=== PATIENT | male | born 1970 | race Caucasian/White ===

== ENCOUNTER → 2020-05-01 | Outpatient (CLI) | payer OTHER ==
[2020-05-01 11:23] LABS: Basophils # (A) 0.1 k/uL (0-0.2); Basophils % (A) 1 %; Eosinophils # (A) 0.3 k/uL (0-0.7); Eosinophils % (A) 3 %; HCT 50.8 % (39.0-53.0); HGB 16.7 gm/dL (13.0-17.5); Lymphocytes # (A) 2.4 k/uL (1.0-4.8); Lymphocytes % (A) 22 %; MCH 29.1 pg (25.0-35.0); MCV 88.3 fL (80.0-100.0); Mean Platelet Volume 7.4; Monocytes # (A) 0.6 k/uL (0-1.0); Monocytes % (A) 5 %; Neutrophils # (A) 7.2 k/uL (1.3-7.7); Neutrophils % (A) 67 %; Platelet Count 204 k/uL (150-450); RBC 5.75 m/uL (4.30-5.90); RDW 13.6 % (11.5-15.5); WBC 10.8 k/uL (3.8-10.6)
[2020-05-01 11:31] LABS: Appearance,Urine Clear (Clear); Bilirubin,Urine Negative (Negative); Blood,Urine Negative (Negative); Color,Urine Yellow; Glucose,Urine (UA) Negative (Negative); Ketones,Urine Negative (Negative); Leukocyte Esterase,Urine Negative (Negative); Nitrite,Urine Negative (Negative); PH, Urine 5.5 (5.0-8.0); Protein,Urine Trace (Negative)
[2020-05-01 11:42] LABS: African American GFR (CKD) >90 (>60 ml/min/1.73 sqM); Anion Gap 5 mmol/L; Blood Urea Nitrogen 12 mg/dL (9-20); Calcium 9.3 mg/dL (8.4-10.2); Carbon Dioxide 29 mmol/L (22-30); Chloride 107 mmol/L (98-107); Glucose 112 mg/dL (74-99); Non-African American GFR(CKD) 79 (>60 ml/min/1.73 sqM); Sodium 141 mmol/L (137-145)
--- NOTE | 2020-05-01 15:38 | XR ---
EXAMINATION TYPE: XR chest 2V DATE OF EXAM: 05/01/2020 COMPARISON: NONE HISTORY: Z01.818, R05 TECHNIQUE: Frontal and lateral views of the chest are obtained. FINDINGS: There is no pleural effusion or pneumothorax seen. The cardiac silhouette size is within normal limits. Prominence of the lung volumes with flattening the hemidiaphragms noted. Bandlike are as of increased attenuation present at the lung bases. The osseous structures are intact. IMPRESSION: Basilar atelectasis or scarring.
== END | disposition home or self-care (01) ==
LOC: LABPAT 10:29
PROVIDERS: ATTEND Urology
DX: Z01.818 Encounter for other preprocedural examination (principal); C61 Malignant neoplasm of prostate; R35.0 Frequency of micturition; R53.83 Other fatigue; R05 Cough
CPT/HCPCS: 36415; 71046; 80048; 81003; 85025; 87086; 93005

== ENCOUNTER 2020-05-10 10:15 | Day surgery (SDC) | payer OTHER ==
[2020-05-03 15:46] VITALS: BMI 27.7
--- NOTE | 2020-05-09 22:30 | P.HPIHPCON ---
History of Present Illness H&P Date: 05/09/20 Chief Complaint: Prostate Cancer Mr Marquez is a 49 yo male with hx of shannan 7 (3+4) prostate cancer. We discussed with him the options including surgery and radiation therapy. We discussed the risk and benefits with him of each approach. I discussed with surgery the risk of urinary incontinence and erectile dysfunction, I also discussed with him risk of injury to nearby organs including bowels and rectum and blood vessels. I discussed with him given his previous abdominal surgeries he is at an increased risk of complication. I also discussed the risk from anesthesia with him. Which included but not limited to blood clots, heart attack, stroke and even . He understood all the risk and agreed to proceed with a robotic-assisted radical prostatectomy and pelvic lymph node dissection Consent for Procedure: I have explained the operation/procedure to the patient, including the risks, benefits, side effects, alternative therapies (including not receiving the proposed treatment or service), the likelihood of the patient achieving his/her goals, and potential recuperation problems for the procedure/sedation/analgesia, as well as any blood products, if indicated. I also explained to the patient the risks, benefits and side effects of the alternatives, as well as the risks related to not receiving the proposed procedure, care, treatment, or services. - Constitutional Constitutional: Denies chills, Denies fever - Cardiovascular Cardiovascular: Denies chest pain, Denies shortness of breath - Respiratory Respiratory: Denies cough, Denies 7 - Genitourinary (Female) Genitourinary: Denies dysuria, Denies hematuria Past Medical History Past Medical History: Cancer Additional Past Medical History / Comment(s): Prostate cancer. "BP being monitored a little high sometimes, no medication needed, made some diet changes that have helped." History of Any Multi-Drug Resistant Organisms: None Reported Past Surgical History: Appendectomy Additional Past Surgical History / Comment(s): Vasectomy. Past Anesthesia/Blood Transfusion Reactions: No Reported Reaction Past Psychological History: No Psychological Hx Reported Smoking Status: Current every day smoker Past Alcohol Use History: Occasional Additional Past Alcohol Use History / Comment(s): Has been smoking on and off for 30 yrs, 1 PPD. Past Drug Use History: None Reported - Past Family History Father Family Medical History: Cancer Additional Family Medical History / Comment(s): Leukemia. Medications and Allergies Home Medications Medication Instructions Recorded Confirmed Type Aspirin [Adult Low Dose Aspirin EC] 81 mg PO DAILY 05/03/20 05/03/20 History Multivit-Min/Folic/Vit K/Lycop 1 each PO DAILY 05/03/20 05/03/20 History [Men's Multivitamin Tablet] Viagra (Unknown Dose) 1 tab PO DIRECTED PRN 05/03/20 05/03/20 History Allergies Allergy/AdvReac Type Severity Reaction Status Date / Time Penicillins Allergy Severe Anaphylaxis Verified 05/03/20 15:47 Surgical - Exam - General well developed, well nourished, no distress, no pain - Eyes PERRL, normal ocular movement - Respiratory normal expansion, normal respiratory effort - Psychiatric oriented to time, oriented to person, oriented to place Assessment and Plan Assessment: 49 yo male with hx of shannan 7 (3+4) prostate Cancer -OR for robotic prostatectomy and PLND
[~2020-05-10 10:15] MED LIST: CLINDAMYCIN 600 MG in DEXTROSE 5% IN WATER 50 ML IVPB PRN; DEXAMETHASONE SOD PHOSPHATE 4 MG/ML 1 ML VIAL IV ONE; GENTAMICIN 120 MG in SODIUM CHLORIDE 0.9% 100 ML IVPB PRN; HEPARIN SODIUM,PORCINE 5,000 UNIT/ML 1 ML VIAL SQ PRN; HYDROmorphone 0.5 MG/0.5 ML SYRINGE IVP PRN; LIDOCAINE 1% (10MG/ML) FOR IV START INTRADERMA PRN; MIDAZOLAM 2 MG/2 ML VIAL IV PRN; ONDANSETRON 4 MG/2 ML VIAL IVP ONE
[2020-05-10] MEDS: LACTATED RINGERS 1,000 ML IV SCH ×2 (11:13→11:14)
[2020-05-10] MEDS ORDERED: MIDAZOLAM 2 MG/2 ML VIAL ONE (12:03)
[2020-05-10] MEDS ORDERED: LIDOCAINE 1% INJ 10MG/ML (20 ML MDV) ONE (12:03)
[2020-05-10] MEDS ORDERED: LABETALOL 5 MG/ML VIAL MDV ONE (12:03)
[2020-05-10] MEDS ORDERED: KETAMINE 10 MG/ML 20 ML VIAL ONE (12:03)
[2020-05-10] MEDS ORDERED: SUCCINYLCHOLINE CHLORIDE 100 MG/5 ML SYR IV ONE (12:03)
[2020-05-10] MEDS ORDERED: NEOSTIGMINE 1 MG/ML 10 ML VIAL ONE (12:03)
[2020-05-10] MEDS ORDERED: PROPOFOL 10 MG/ML 20 ML VIAL IV ONE (12:03)
[2020-05-10] MEDS ORDERED: GLYCOPYRROLATE 0.2 MG/ML 2 ML VIAL ONE (12:03)
[2020-05-10] MEDS ORDERED: HYDROmorphone (PF) 1 MG/ML ONE (12:03)
[2020-05-10] MEDS ORDERED: ROCURONIUM 10 MG/ML (10 ML VIAL) IV ONE (12:03)
[2020-05-10] MEDS ORDERED: fentaNYL (PF) 50 MCG/ML 2 ML AMP ONE (12:03)
[2020-05-10] MEDS ORDERED: BUPIVACAINE (PF) 0.25% 30 ML VIAL SQ ONE ×2 (13:50)
[2020-05-10] MEDS ORDERED: LACTATED RINGERS 1,000 ML IV ONE (14:24)
--- NOTE | 2020-05-10 16:26 | P.OP ---
Date of Procedure: 05/10/20 Preoperative Diagnosis: Prostate cancer Postoperative Diagnosis: Same Procedure(s) Performed: Robotic prostatectomy, bilateral pelvic lymph node dissection Implants: None Anesthesia: ROSAURAA Surgeon: Joaquim Velasquez Wage Conciliator #1: Isaac Washington Estimated Blood Loss (ml): 150 Pathology: other (Prostate, seminal vesicles, right prostate margin, bilateral pelvic lymph node dissection) Condition: stable Disposition: PACU Indications for Procedure: Mr Marquez is a 49 yo male with hx of shannan 7 (3+4) prostate cancer. We discussed with him the options including surgery and radiation therapy. We discussed the risk and benefits with him of each approach. I discussed with surgery the risk of urinary incontinence and erectile dysfunction, I also discussed with him risk of injury to nearby organs including bowels and rectum and blood vessels. I discussed with him given his previous abdominal surgeries he is at an increased risk of complication. I also discussed the risk from anesthesia with him. Which included but not limited to blood clots, heart attack, stroke and even . He understood all the risk and agreed to proceed with a robotic-assisted radical prostatectomy and pelvic lymph node dissection Description of Procedure: After preoperative antibiotics were started, the patient was taken to the operating room. Anesthesia was induced and the patient was placed in supine position, with adequate padding of the pressure points, shoulders, back, legs and arms. He was then prepped and draped in the standard fashion. A critical pause was performed using two patient identifiers. A 16F lerner catheter was placed to gravity drainage. A pneumo-peritoneum was created with placement of a Veress needle to 20 mm Hg without complication, and a 8 Fr trocar was placed above the umbillicus. Under direct vision a 8mm robotic ports was placed lateral to each rectus slightly below the camera port. The left iliac fossa 8mm port was placed. The right corporate administrative assistant right iliac fossa 12mm port and right paramedian 5mm portwere placed. After the patient was placed in the trendelenberg position, the robot was then docked to the 8mm robotic ports and then each robotic arm and tower was checked in relation to the patient's legs and hands to avoid inadvertent compression. The peritoneal cavity was inspected. An inverted U-shaped incision began laterally to the left medial umbilical li gament and extended high across the midline to the right umbilical ligament. The limbs of the "U" extended to the level of the vasa on both sides. We next developed the preperitoneal space and the space of Retzius. Cautery was used to dissected the bladder away from the prostate. After the anterior bladder neck was incised and the bladder entered the the posterior bladder neck was exposed and the ureteral orifces identified. The posterior bladder neck was then incised and dissected away from the prostate. The vas and the seminal vesicles were now exposed and dissected to their insertions into the prostate and were not spared. The posterior layer of the Denonvillier's fascia was incised to enter anne the plane between prostate and perirectal fat. Each lateral pedicle was controlled with clips and cautery for hemostasis. partial preservation was performed one left and complete nerve preservation was made on the right. . The puboprostatic ligament was incised where it inserted into the apex of the prostate and a plane between urethra and dorsal venous complex developed to expose the anterior urethral surface. The anterior wall of the urethra was transected with the cut setting a few millimeters distal to the apex of the prostate. The dorsal vein was ligated using 3-0 V lock. There was thickened tissue along the right nerve bundle, this was sent to pathology and came back negative for malignancy , but prostatic tissue could not be ruled out. Given the possibility of prostatic tissue the decision was to proceed with excison of the remainder of the thickened tissue and sent it for permanent and this was sent as right prostate margin bilateral obturator and external iliac lymph node packets were carefully dissected after careful visualization of the hypogastric artery and obturator nerve. There was careful attention paid to hemostasis with judicious use of cautery. The urethrovesical anastomosis was performed . the posterior denovillers was reapproximated using 3-0 V lock. A 6 and 6 inch 3-0 V-Lock suture was used to anastomose the urethra and bladder, starting at the 6:00 posterior position. Mucosa was secured in every stitch, to ensure a mucosa to mucosa anastomosis. The stitch was regularly cinched and the anastomosis tightened. Care was taken to not violate the ureteral orifices. The Lerner catheter was advanced, the bladder filled, and the anastomosis was tested, as described above. Anastomsis was watertight at 150 mL The periumbilical fascia was closed with 1-0-PDS suture in figure of eight fashion. All ports were closed with a subcuticular 4-0 monocryl and Dermabond. Sponge, instrument, and needle counts were correct at the end of the case x2. All specimens including prostate and lymph nodes were sent to pathology for diagnosis and will be available in a week. The patient tolerated the surgery well and without complication. He awoke without difficulty and was taken to the recovery room in stable condition
[2020-05-10] MEDS: KETOROLAC 15 MG/ML 1 ML VIAL IVP SCH ×2 (19:16→23:46)
[2020-05-10] MEDS: D5-0.45% NACL WITH KCL 20MEQ/L 1,000 ML IV SCH (20:00)
[2020-05-10] MEDS: HEPARIN SODIUM,PORCINE 5,000 UNIT/ML 1 ML VIAL SQ SCH (23:47)
[2020-05-10] MEDS: HYDROcodone/APAP 5-325MG 1 EACH TAB PO PRN (23:47)
[2020-05-11] MEDS: D5-0.45% NACL WITH KCL 20MEQ/L 1,000 ML IV SCH ×3 (01:48→18:50)
[2020-05-11] MEDS: KETOROLAC 15 MG/ML 1 ML VIAL IVP SCH ×4 (05:28→23:37)
[2020-05-11] MEDS: HYDROcodone/APAP 5-325MG 1 EACH TAB PO PRN ×4 (05:32→20:59)
[2020-05-11] MEDS: HEPARIN SODIUM,PORCINE 5,000 UNIT/ML 1 ML VIAL SQ SCH ×3 (08:29→23:37)
[2020-05-11] MEDS ORDERED: SODIUM CHLORIDE 0.9% 1,000 ML IV ONE ×2 (11:44→17:04)
--- NOTE | 2020-05-11 20:38 | P.PN ---
Subjective Progress Note Date: 05/11/20 POD #1 S/P robotic prostatectomy, having mild diffused abdominal pain, controlled with pain medication, denies any N/V. Having low UO, Objective - Vital Signs Vital signs: Vital Signs Temp 97.5 F L 05/11/20 15:01 Pulse 73 05/11/20 15:01 Resp 17 05/11/20 15:01 BP 111/70 05/11/20 15:01 Pulse Ox 95 05/11/20 15:01 Intake & Output 05/11/20 05/11/20 05/12/20 06:59 18:59 06:59 Intake Total 2340 Output Total 350 250 Balance 1989 - Intake: Intake, IV Titration 1500 Amount D5-0.45% NaCl with KCl 1500 20Meq/l 1,000 ml @ 125 mls/hr IV .Q8H [facility] Rx#: [id number] Oral 840 Output: Urine 350 250 Uretheral ([place]) 350 250 Other: Voiding Method Indwelling Catheter - Gastrointestinal General gastrointestinal: Present: soft. Absent: distended, rigid - Genitourinary Genitourinary Comment(s): urine dark yellow - Integumentary Integumentary Comment(s): Incision; CDI - Psychiatric Psychiatric: Present: A&O x's 3 Assessment and Plan Assessment: POD #1 S/P robotic prostatectomy, Having low UO -Pain control - 1 L bolus for low UO, if still having low UO, will obtain a BMP -
[2020-05-11 22:25] LABS: HCT 37.4 % (39.0-53.0); MCH 31.3 pg (25.0-35.0); MCHC 35.7 g/dL (31.0-37.0); MCV 87.6 fL (80.0-100.0); Mean Platelet Volume 7.2; Platelet Count 173 k/uL (150-450); RBC 4.27 m/uL (4.30-5.90); RDW 12.9 % (11.5-15.5); WBC 8.4 k/uL (3.8-10.6)
[2020-05-11 22:34] LABS: Potassium 4.3 mmol/L (3.5-5.1)
[2020-05-11 22:35] LABS: African American GFR (CKD) >90 (>60 ml/min/1.73 sqM); Anion Gap 2 mmol/L; Blood Urea Nitrogen 13 mg/dL (9-20); Calcium 8.4 mg/dL (8.4-10.2); Carbon Dioxide 25 mmol/L (22-30); Chloride 108 mmol/L (98-107); Glucose 135 mg/dL (74-99); Non-African American GFR(CKD) >90 (>60 ml/min/1.73 sqM); Sodium 135 mmol/L (137-145)
[2020-05-11 22:43] LABS: HGB 13.4 gm/dL (13.0-17.5)
[2020-05-12] MEDS: HYDROcodone/APAP 5-325MG 1 EACH TAB PO PRN ×2 (01:37→06:59)
[2020-05-12] MEDS: D5-0.45% NACL WITH KCL 20MEQ/L 1,000 ML IV SCH ×2 (01:37→05:25)
[2020-05-12 03:32] VITALS: TEMP 97.7
[2020-05-12] MEDS: LACTATED RINGERS 1,000 ML IV SCH (05:04)
[2020-05-12] MEDS: KETOROLAC 15 MG/ML 1 ML VIAL IVP SCH (05:22)
[2020-05-12] MEDS: HEPARIN SODIUM,PORCINE 5,000 UNIT/ML 1 ML VIAL SQ SCH (06:59)
[2020-05-12 07:39] VITALS: BP 135/80; PULSE 78; RESP 16
--- NOTE | 2020-05-12 08:40 | P.DS ---
Providers Date of admission: 05/11/20 09:42 Attending physician: Joaquim Velasquez MD Primary care physician: [facility] Course: Mr Marquez is 49 yo male with hx of shannan 7 (3+4) prostate Cancer, please see op note dated 05/10/20 for full surgery details. He was admitted to the surgical GPU post operatively. He was having low UO post operatively, UO responded appropriately to fluid bolus. He was discharged home on POD #2 at time of discharge he was tolerating a diet, ambulating and pain is well controlled Plan - Discharge Summary Discharge Rx Participant: Yes New Discharge Prescriptions: New Sulfamethox-Tmp 800-160Mg [Bactrim DS 800-160 mg] 1 tab PO Q12HR #6 tab Ibuprofen 600 mg PO Q6H PRN #30 tab PRN Reason: Pain traMADol HCL [Ultram] 50 mg PO Q6HR PRN 3 Days #6 tab PRN Reason: Pain No Action Viagra (Unknown Dose) 1 tab PO DIRECTED PRN PRN Reason: Impotence Multivit-Min/Folic/Vit K/Lycop [Men's Multivitamin Tablet] 1 each PO DAILY Aspirin [Adult Low Dose Aspirin EC] 81 mg PO DAILY Discharge Medication List Aspirin [Adult Low Dose Aspirin EC] 81 mg PO DAILY 05/03/20 [History] Multivit-Min/Folic/Vit K/Lycop [Men's Multivitamin Tablet] 1 each PO DAILY 05/03/20 [History] Viagra (Unknown Dose) 1 tab PO DIRECTED PRN 05/03/20 [History] Ibuprofen 600 mg PO Q6H PRN #30 tab 05/11/20 [Rx] Sulfamethox-Tmp 800-160Mg [Bactrim DS 800-160 mg] 1 tab PO Q12HR #6 tab 05/11/20 [Rx] traMADol HCL [Ultram] 50 mg PO Q6HR PRN 3 Days #6 tab 05/11/20 [Rx] Patient Instructions/Handouts: Retropubic Prostatectomy (DC) Activity/Diet/Wound Care/Special Instructions: No heavy lifting or straining for 4 weeks Increase you fluid intake You may see some blood in he urine Start your antibiotics one day prior to your appointment
== END 2020-05-12 10:10 | disposition home or self-care (01) ==
LOC: OR 10:15 → 4SSUR 16:27 → OR 05-11 09:42
PROVIDERS: ADMIT Urology; ATTEND Urology
DX: C61 Malignant neoplasm of prostate (principal); Z88.0 Allergy status to penicillin; F17.210 Nicotine dependence, cigarettes, uncomplicated; Z79.82 Long term (current) use of aspirin; Z80.6 Family history of leukemia; Z98.52 Vasectomy status; Z98.890 Other specified postprocedural states
CPT/HCPCS: 88305; 80048; 85027; 88331; 88307; 88309; 55866; 38571; G0378 ×2; J2250; J1644 ×3; J1100; J2710; J2405; J2001; J3010; J1580; J1170; J1885 ×3; J0330; J2704; 86850; 86900; 86901